=== PATIENT | female | born 2000 | race Caucasian/White ===

== ENCOUNTER 2021-01-06 05:11 | Emergency (ER) | payer SELFPAY ==
[2021-01-06] MEDS ORDERED: Lorazepam 2 MG/ML VIAL ONE (05:32)
== END 2021-01-06 09:06 | disposition home or self-care (01) ==
LOC: CSHERS 05:11
DX: T50.905A Adverse effect of unspecified drugs, medicaments and biological substances, initial encounter (principal)
CPT/HCPCS: 96374; J2060